=== PATIENT | male | born 1970 | race American Indian/Alaskan Native ===

== ENCOUNTER 2022-06-27 08:20 | Outpatient (CLI) | payer OTHER ==
--- NOTE | 2022-06-27 10:15 | Cat Scan Report ---
CT CHEST WITHOUT CONTRAST INDICATION / CLINICAL INFORMATION: ABNORMAL LUNG IMAGING. TECHNIQUE: Axial CT images were obtained through the chest without contrast. All CT scans at this location are p erformed using CT dose reduction for ALARA by means of automated exposure control. COMPARISON: None available. FINDINGS: Small rounded density within the right lower lung which is also adjacent to a prominent vessel measur es 5 mm. Additional smaller 2 to 3 mm nodule seen in the right middle lobe no focal consolidation, pl eural effusion or pneumothorax. On coronal images the more prominent nodular density is adjacent to t he fissure measuring 8 x 4 mm. Mildly prominent axillary nodes are identified. UPPER ABDOMEN: No sign ificant abnormality. SKELETAL SYSTEM: No significant abnormality. IMPRESSION: 1. Multiple pulmonary nodules. There is a nodule within the right lung measuring up to 8 x 4 mm adjac ent to the fissure. A follow-up CT examination in 6-12 months recommended. 2. Mildly prominent axillary nodes. Clinical correlation and follow-up as indicated. Signer Name: Blu Schwartz MD Signed: 06/27/2022 10:10 AM Workstation Name: [id number]
== END 2022-06-27 08:21 | disposition home or self-care (01) ==
LOC: CT 08:20
PROVIDERS: ATTEND Internal Medicine
DX: R91.8 Other nonspecific abnormal finding of lung field (principal); R59.0 Localized enlarged lymph nodes
CPT/HCPCS: 71250